=== PATIENT | female | born 1955 | race Caucasian/White ===

== ENCOUNTER 2017-12-26 09:16 | Day surgery (SDC) | payer MEDICAID ==
[2017-12-24 10:01] VITALS: BMI 29.7
[~2017-12-26 09:16] MED LIST: LACTATED RINGERS 1,000 ML IV SCH
[2017-12-26 09:34] VITALS: RESP 16; TEMP 97.8
[2017-12-26] MEDS ORDERED: MIDAZOLAM 2 MG/2 ML VIAL ONE (10:08)
[2017-12-26] MEDS ORDERED: PROPOFOL 10 MG/ML 20 ML VIAL IV ONE (10:08)
--- NOTE | 2017-12-26 10:30 | P.GSHP ---
History of Present Illness H&P Date: 12/26/17 Chief Complaint: Colon cancer screening Patient today for colonoscopy. Last colonoscopy 10 years ago. No bowel related complaints. No family history of colon cancer. Past Medical History Past Medical History: GERD/Reflux, Hypertension, Thyroid Disorder History of Any Multi-Drug Resistant Organisms: None Reported Past Surgical History: Hysterectomy, Tonsillectomy Additional Past Surgical History / Comment(s): Colonoscopy Past Anesthesia/Blood Transfusion Reactions: No Reported Reaction Past Psychological History: No Psychological Hx Reported Smoking Status: Never smoker Past Alcohol Use History: None Reported Past Drug Use History: None Reported - Past Family History Mother Family Medical History: No Reported History Medications and Allergies Home Medications Medication Instructions Recorded Confirmed Type Estradiol [Estrace] 0.5 mg PO HS 12/24/17 12/26/17 History Levothyroxine Sodium [Synthroid] 75 mcg PO QAM 12/24/17 12/26/17 History Lisinopril [Zestril] 20 mg PO QAM 12/24/17 12/26/17 History Allergies Allergy/AdvReac Type Severity Reaction Status Date / Time Sulfa (Sulfonamide Allergy Rash/Hives Verified 12/26/17 09:26 Antibiotics) Surgical - Exam Vital Signs Temp Pulse Resp BP Pulse Ox 97.8 F 79 16 125/82 99 12/26/17 09:33 12/26/17 09:33 12/26/17 09:33 12/26/17 09:33 12/26/17 09:33 Physical exam: General: Well-developed, well-nourished HEENT: Normocephalic, sclerae nonicteric Abdomen: Nontender, nondistended Extremities: No edema Neuro: Alert and oriented Assessment and Plan (1) Colon cancer screening Narrative/Plan: Will proceed with colonoscopy at this time. Current Visit: Yes Status: Acute Code(s): Z12.11 - ENCOUNTER FOR SCREENING FOR MALIGNANT NEOPLASM OF COLON SNOMED Code(s): 291504468
--- NOTE | 2017-12-26 10:55 | P.PCN ---
Date of Procedure: 12/26/17 Procedure(s) Performed: PREOPERATIVE DIAGNOSIS: Colon cancer screening POSTOPERATIVE DIAGNOSIS: Mild diverticulosis PROCEDURE: Colonoscopy ANESTHESIA: MAC SURGEON: Steve Atkins M.D. SPECIMENS: None ENDOSCOPIC PROCEDURE: The patient was placed on the endoscopy table in the left decubitus position. The Olympus colonoscope was inserted into the anus and passed under direct visualization to the base of the cecum. The appendiceal orifice was visualized. From that point the scope was slowly withdrawn inspecting all surfaces carefully. There were no neoplastic inflammatory or polypoid lesions throughout the cecum, ascending, transverse, descending, sigmoid and rectum. There was sigmoid diverticulosis noted. The patient's colon was quite tortuous making travel through the colon somewhat challenging. Digital rectal examination was normal. The patient was taken to the recovery room in stable condition per anesthesia guidelines. RECOMMENDATIONS: Increase fiber. Follow-up colonoscopy 10 years.
[2017-12-26 10:58] LABS: Glucose,Whole Blood 96 mg/dL (75-99)
[2017-12-26 11:40] VITALS: BP 95/60; PULSE 86
== END 2017-12-26 11:49 | disposition home or self-care (01) ==
LOC: ORWHC2ENDO 09:16
PROVIDERS: ATTEND Surgery
DX: Z12.11 Encounter for screening for malignant neoplasm of colon (principal); K57.30 Diverticulosis of large intestine without perforation or abscess without bleeding; K56.2 Volvulus; K21.9 Gastro-esophageal reflux disease without esophagitis; I10 Essential (primary) hypertension; E07.9 Disorder of thyroid, unspecified; Z79.890 Hormone replacement therapy; Z79.899 Other long term (current) drug therapy; Z88.2 Allergy status to sulfonamides
CPT/HCPCS: 45378; J2250; J2704

== ENCOUNTER → 2018-02-09 | Outpatient (CLI) | payer OTHER ==
--- NOTE | 2018-02-09 12:57 | XR ---
EXAMINATION TYPE: XR knee complete LT DATE OF EXAM: 02/09/2018 CLINICAL HISTORY: Left knee pain after twisting injury TECHNIQUE: Three views of the left knee are obtained. COMPARISON: None. FINDINGS: There is no acute fracture/dislocation evident in left knee. There is tricompartmental art hropathy with small marginal osteophytes most pronounced of the lateral compartment and tricompartmen t joint space narrowing. Incidentally noted fabella is seen. No suprapatellar joint effusion.. The o verlying soft tissue appears unremarkable. IMPRESSION: There is no acute fracture or dislocation in the left knee. Moderate tricompartmental ar thropathy.
== END | disposition home or self-care (01) ==
LOC: RADXRMAIN 12:34
PROVIDERS: ATTEND Emergency Medicine
DX: S83.92XA Sprain of unspecified site of left knee, initial encounter (principal); M17.12 Unilateral primary osteoarthritis, left knee

== ENCOUNTER → 2019-07-15 | Outpatient (CLI) | payer MEDICAID ==
--- NOTE | 2019-07-15 15:15 | BD ---
EXAMINATION TYPE: Axial Bone Density DATE OF EXAM: 07/15/2019 COMPARISON: 05/24/2011 CLINICAL HISTORY: Z 78.0 Height: 64.5 Weight: 200 FRAX RISK QUESTIONS: Alcohol (3 or more units per day): no Family History (Parent hip fracture): no Glucocorticoids (More than 3mos): no (Ex: prednisone, prednisolone, methylprednisolone, dexamethasone, and hydrocortisone). History of Fracture in Adulthood: no Secondary Osteoporosis: 1. Type 1 Diabetes: no 2. Hyperthyroidism: unsure 3. Menopause before 45: yes 4. Malnutrition: no 5. Chronic liver disease: no Rheumatoid Arthritis: no Current Tobacco Use: no RISK FACTORS HISTORY OF: Family History of Osteoporosis: no Active: yes Diet low in dairy products/other sources of calcium: no Postmenopausal woman: yes Take estrogen and/or progesterone medications: yes How long: since age 32 Lost more than 2 inches in height since high school: no Frequent falls: no Poor Health: no Hyperparathyroidism: no Adrenal Insufficiency: no MEDICATIONS: Prednisone or other steroids: no Thyroid Medications: yes Which medication: Synthroid How Long: at least since 2010 Osteoporosis Medications: no Additional Medications: blood pressure med Additional History: EXAM MEASUREMENTS: Bone mineral densitometry was performed using the [employer]. Bone mineral density as measured about the Lumbar spine is: ----- L1-L4(G/cm2): 1.136 T Score Values are as follows: ----- L2: -0.8 ----- L3: 0.0 ----- L4: -0.7 ----- L1-L4: -0.4 Bone mineral density has: Decreased -1.9% since study of: 05/24/2011 Bone mineral density about the R hip (g/cm2): 1.097 Bone mineral density about the L hip (g/cm2): 1.071 T Score values are as follows: -----R Neck: 0.4 -----L Neck: 0.2 -----R Total: 0.9 -----L Total: 0.7 Bone mineral density has: Decreased -2.0% since study of: 05/24/2011 IMPRESSION: Normal (Values between +1 and -1 indicate normal bone mass). Consider repeating this study in 5 year s or sooner if there is some new clinical indication. NOTE: T-SCORE=SD OF THE YOUNG ADULT MEAN.
--- NOTE | 2019-07-19 09:21 | MM ---
Reason for exam: screening (asymptomatic). Last mammogram was performed 8 years and 2 months ago. History: Patient is postmenopausal. Family history of breast cancer in grandmother at age 86. Taking estrogen for 22 years beginning at age 32. Physical Findings: A clinical breast exam by your physician is recommended on an annual basis and results should be correlated with mammographic findings. MG Screening Mammo w CAD Bilateral CC and MLO view(s) were taken. Prior study comparison: May 24, 2011, bilateral digital screening mammo w/CAD. September 16, 2005, CAD bilateral diagnostic mammogram. There are scattered fibroglandular densities. No significant changes when compared with prior studies. ASSESSMENT: Negative, BI-RAD 1 RECOMMENDATION: Routine screening mammogram of both breasts in 1 year.
== END | disposition home or self-care (01) ==
LOC: RADMAMWWP 11:38
PROVIDERS: ATTEND Family Medicine
DX: Z12.31 Encounter for screening mammogram for malignant neoplasm of breast (principal); Z78.0 Asymptomatic menopausal state
CPT/HCPCS: 77067; 77080

== ENCOUNTER → 2023-05-27 | Outpatient (CLI) | payer MEDICAID ==
[2023-05-28 14:15] LABS: Cryptosporidium Antigen Negative (Negative)
== END | disposition home or self-care (01) ==
LOC: LABPRL 13:29
PROVIDERS: ATTEND Family Medicine
DX: R19.7 Diarrhea, unspecified (principal)
CPT/HCPCS: 83630; 87045; 87046; 87324; 87328; 87329